=== PATIENT | male | born 1965 | race Caucasian/White ===

== ENCOUNTER 2024-02-26 14:08 | Inpatient (IN) | payer SELFPAY ==
[2024-02-26] MEDS ORDERED: NA CHLORIDE 0.9% 1,000 ML ONE (15:10)
--- NOTE | 2024-02-26 15:26 | RAD REPORT ---
EXAM DESCRIPTION: CT - C Spine Wo Con - 02/26/2024 2:57 pm CLINICAL HISTORY: TRAUMA Fall, trauma, neck injury COMPARISON: <Comparisons> FINDINGS: The cervical vertebral body heights are maintained. Disc thinning with posterior osteophyt e formation C5-6. No evidence of acute cervical spine fracture or subluxation. 3 mm degenerative anterolisthesis is see n C4 on 5 and C6 on 7. Prevertebral soft tissues are normal in thickness. Carotid atherosclerosis bilaterally. IMPRESSION: Negative for acute cervical spine abnormality. Multilevel degenerative change is present. All CT scans are performed using dose optimization technique as appropriate and may include automated exposure control or mA/KV adjustment according to patient size.
[2024-02-26 15:32] LABS: Absolute Lymphocytes (CBC) 0.4 K/uL (0.7-4.9); Absolute Monocytes 0.5 K/uL (0.1-1.3); Absolute Neutrophil 3.5 K/uL (1.8-8.0); Eosinophils % 0.1 % (0-4.4); Hematocrit 44.3 % (39.6-49.0); Hemoglobin 14.7 g/dL (13.6-17.9); Lymphocytes % 8.7 % (15.3-44.8); MCH 31.7 pg (27.0-35.0); MCHC 33.1 g/dL (32.0-36.0); MCV 95.9 fL (80-100); MPV 7.2 fL (7.6-11.3); Monocytes % 11.1 % (3.3-12.3); Neutrophils % 79.1 % (41.7-73.7); Platelets 219 thou/uL (152-406); RBC Red Blood Cell Count 4.63 M/uL (4.33-5.43); Red Cell Distribution Width 12.6 % (12.1-15.2)
[2024-02-26 15:44] LABS: Barbiturates NEGATIVE (NEGATIVE); Benzodiazepines NEGATIVE (NEGATIVE); Cocaine NEGATIVE (NEGATIVE); METHAMPHETAM POSITIVE (NEGATIVE); Methadone NEGATIVE (NEGATIVE); Opiates NEGATIVE (NEGATIVE); Phencyclidine NEGATIVE (NEGATIVE); THC Cannibis NEGATIVE (NEGATIVE)
[2024-02-26 15:49] LABS: Albumin 4.1 g/dL (3.4-5.0); Anion Gap 15.2 mEq/L (5.0-15.0); Bilirubin Direct 0.3 mg/dL (0-0.2); Bilirubin Indirect, Calculated 0.7 mg/dL (0.2-0.8); Globulin 4.1 g/dL (2.3-3.5); Magnesium 2.2 mg/dL (1.6-2.4); Potassium 4.2 mEq/L (3.5-5.1); Protein, Total 8.2 g/dL (6.4-8.2); Troponin High Sensitivity 5.7 pg/mL (<58.9)
--- NOTE | 2024-02-26 16:02 | ER ---
Nurse's Notes [facility] Name: Hao Hardwick Age: 58 yrs Sex: Male : 1965 Arrival Date: 02/26/2024 Time: 14:08 Bed 17 Private MD: Diagnosis: Hyponatremia, syncope, dehydration, alcoholism Presentation: 02/25 14:21 Chief complaint: Patient states: MULTIPLE FALLS WITH WEAKNESS SEEN YESTERDAY BY PCP FOR db SYMPTOMS. CT THIS AM. NOTED BRUISES ALL OVER PATIENT FACE. DRINK ALCOHOL DAILY. LAST DRINK YESTERDAY. Coronavirus screen: Client denies travel out of the [place] in the last 14 days. At this time, the client does not indicate any symptoms associated with coronavirus-19. Ebola Screen: Patient negative for fever greater than or equal to 101.5 degrees Fahrenheit, and additional compatible Ebola Virus Disease symptoms Patient denies exposure to infectious person. Patient denies travel to an Ebola-affected area in the 21 days before illness onset. No symptoms or risks identified at this time. Initial Sepsis Screen: Does the patient meet any 2 criteria? HR > 90 bpm. No. Patient's initial sepsis screen is negative. Does the patient have a suspected source of infection? No. Patient's initial sepsis screen is negative. Risk Assessment: Do you want to hurt yourself or someone else? Patient reports no desire to harm self or others. Onset of symptoms was February 26, 2024. 14:21 Method Of Arrival: Wheelchair db 14:21 Acuity: JORDYN 2 db Triage Assessment: 14:23 General: Appears in no apparent distress. uncomfortable, Behavior is cooperative, db anxious. Pain: Complains of pain in head. Neuro: Level of Consciousness is awake, alert, obeys commands, Oriented to person, place, time, situation, Reports dizziness. Respiratory: Airway is patent Respiratory effort is even, unlabored, Respiratory pattern is regular, symmetrical. Historical: - Allergies: 14:23 No Known Allergies; db - PMHx: 14:23 Hypertensive disorder; db - Immunization history:: Adult Immunizations unknown. - Infectious Disease History:: Denies. - Social history:: Smoking status: Reported history of juuling and/or vaping. Patient uses alcohol, on a daily basis. Screenin:50 [facility] ED Fall Risk Assessment (Adult) History of falling in the last 3 months, nj1 including since admission Yes- fall prone (multiple falls) (3 pts) Confusion or Disorientation No (0 pts) Intoxicated or Sedated No (0 pts) Impaired Gait No (0 pts) Mobility Assist Device Used No (0 pt) Altered Elimination No (0 pt) Score/Fall Risk Level 3 or more points = High Risk Oriented to surroundings, Maintained a safe environment, Educated pt \T\ family on fall prevention, incl call for assistance when getting out of bed, Provided non-skid footwear, Hourly rounding (assess needs \T\ fall precautionary measures) done, Remained w/in arm's length of patient and in sight while toileting, Offered frequent toileting (1:1 observation), Remained with patient while ambulating, Utilized family, sitter, or virtual automatic spinning lathe operator as indicated. Abuse screen: Denies threats or abuse. Denies injuries from another. Nutritional screening: No deficits noted. Tuberculosis screening: No symptoms or risk factors identified. Assessment: 15:49 General: Appears in no apparent distress. comfortable, Behavior is calm, cooperative, nj1 appropriate for age. Pain: Denies pain. Neuro: Level of Consciousness is awake, alert, obeys commands, Oriented to person, place, time, situation, Moves all extremities. Speech is normal, Facial symmetry appears normal. Cardiovascular: Patient's skin is warm and dry. Rhythm is sinus tachycardia. Respiratory: Airway is patent Respiratory effort is even, unlabored. Derm: Bruising that is dark purple, on face, right knee and left knee. 16:49 Reassessment: Patient appears in no apparent distress at this time. Patient and/or nj1 family updated on plan of care and expected duration. Pain level reassessed. Patient is alert, oriented x 3, equal unlabored respirations, skin warm/dry/pink. 17:52 Reassessment: Patient appears in no apparent distress at this time. Patient and/or nj1 family updated on plan of care and expected duration. Pain level reassessed. Patient is alert, oriented x 3, equal unlabored respirations, skin warm/dry/pink. 18:01 Reassessment: Unsuccessful attempt to call report at this time. Nurse unavailable, will nj1 call back for report. 18:15 Reassessment: REPORT TO NEIL BEE FOR ICU. bp Vital Signs: 14:21 BP 152 / 93; Pulse 117; Resp 18; Temp 98.3; Pulse Ox 100% ; Weight 88 kg; Height 5 ft. db 10 in. ; 15:51 BP 166 / 93; Pulse 123; Resp 15; Pulse Ox 99% ; nj1 16:49 BP 149 / 90; Pulse 119; Resp 13; Pulse Ox 99% ; nj1 17:50 BP 144 / 84; Pulse 120; Resp 18; Temp 97.7(TE); Pulse Ox 98% on R/A; nj1 18:06 BP 144 / 84; Pulse 128; Resp 18; Pulse Ox 100% on R/A; ld1 14:21 Body Mass Index 27.84 (88.00 kg, 177.8 cm) db ED Course: 14:15 Patient arrived in ED. im 14:18 Aime Carlton MD is Attending Physician. sp3 14:23 Triage completed. db 14:24 Arm band placed on. db 14:59 C Spine Wo Con In Process Unspecified. EDMS 15:10 Inserted saline lock: 20 gauge in right forearm, using aseptic technique. Blood lg3 collected. 15:10 UDS Sent. lg3 15:10 ETOH Level Sent. lg3 15:11 Basic Metabolic Panel Sent. lg3 15:11 CBC with Diff Sent. lg3 15:11 LFT's Sent. lg3 15:11 Magnesium Sent. lg3 15:11 NT PRO-BNP Sent. lg3 15:11 PT-INR Sent. lg3 15:11 Troponin HS Sent. lg3 15:34 XRAY Chest (1 view) In Process Unspecified. EDMS 15:36 Rosalva March, RN is Primary Nurse. nj1 15:50 Patient has correct armband on for positive identification. Bed in low position. Call nj1 light in reach. Adult w/ patient. Provided Education on: call light, fall precautions. Client placed on continuous cardiac and pulse oximetry monitoring. NIBP monitoring applied. site monitor on. 16:01 Comfort Bradshaw MD is Hospitalizing Provider. sp3 16:48 Knee Left 2 View XRAY In Process Unspecified. EDMS 16:49 Knee Right 2 View XRAY In Process Unspecified. EDMS 18:15 Liver Only In Process Unspecified. EDMS 18:16 No provider procedures requiring assistance completed. Patient admitted, IV remains in bp place. Administered Medications: 15:13 Drug: NS 0.9% IV 1000 ml IV at 1 bolus Per protocol; 1000 mL bolus Route: IV; Rate: 1 lg3 bolus; Site: right forearm; 18:16 Follow up: IV Status: Completed infusion; IV Intake: 1000ml bp 16:39 Drug: Ativan IVP 1 mg IVP once Route: IVP; Site: right antecubital; nj1 17:50 Follow up: Response: No adverse reaction nj1 Medication: 18:21 VIS not applicable for this client. nj1 Intake: 18:16 IV: 1000ml; Total: 1000ml. bp Output: 16:30 Urine: 1000ml (Voided); Total: 1000ml. nj1 Outcome: 16:01 Decision to Hospitalize by Provider. sp3 18:16 Admitted to ICU accompanied by nurse, via stretcher, room 3, with chart, Report called bp to NEIL RN 18:16 Condition: stable 18:16 Instructed on the need for admit, 18:21 Patient left the ED. nj1 Signatures: Dispatcher [employer] EDMS Sherman Luna RN RN Raven George RN RN lg3 Linette Pina, RN RN ld1 Aime Carlton MD MD sp3 Mary Curry RN RN db Rosalva March RN RN nj1 Aidee Qureshi Corrections: (The following items were deleted from the chart) 14:24 14:20 Chief complaint: db db 14:24 14:21 Chief complaint: Patient states: MULTIPLE FALLS WITH WEAKNESSSEEN YESTERDAY BY db PCP FOR SYMPTOMS. CT THIS AM db 17:59 17:50 BP 144 / 84; Pulse 120bpm; Resp 18bpm; Pulse Ox 98% RA; nj1 nj1
--- NOTE | 2024-02-26 16:02 | EDPHYS ---
Physician Documentation [facility] Name: Hao Hardwick Age: 58 yrs Sex: Male : 1965 Arrival Date: 02/26/2024 Time: 14:08 Bed 17 Private MD: ED Physician Aime Carlton HPI: 02/25 15:50 This 58 yrs old Male presents to ER via Wheelchair with complaints of Decreased sp3 Appetite, Syncope, Vomiting. 15:50 58-year-old male with a history of hypertension, alcoholism who now presents to the ED sp3 with multiple falls over the last 3 to 4 days. Patient sent by PCP for multiple contusions, head injuries, knee injuries and bouts of syncope causing these injuries. Patient also complains of vomiting. Denies any chest pain, shortness of breath, fever, cough, bleeding, or any other signs or symptoms on ROS at this time. His last drink was yesterday he does not feel like he is withdrawing. He denies any illicit drug use.. Historical: - Allergies: 14:23 No Known Allergies; db - PMHx: 14:23 Hypertensive disorder; db - Immunization history:: Adult Immunizations unknown. - Infectious Disease History:: Denies. - Social history:: Smoking status: Reported history of juuling and/or vaping. Patient uses alcohol, on a daily basis. ROS: 15:53 Eyes: Negative for injury, pain, redness, and discharge, Neck: Negative for injury, sp3 pain, and swelling, Respiratory: Negative for shortness of breath, cough, wheezing, and pleuritic chest pain, Skin: Negative for injury, rash, and discoloration, Allergy/Immunology: Negative for hives, rash, and allergies, Endocrine: Negative for neck swelling, polydipsia, polyuria, polyphagia, and marked weight changes, 15:53 All other systems are negative, Exam: 15:53 Constitutional: This is a well developed, well nourished patient who is awake, alert, sp3 and in no acute distress. Eyes: Pupils equal round and reactive to light, extra-ocular motions intact. Lids and lashes normal. Conjunctiva and sclera are non-icteric and not injected. Cornea within normal limits. Periorbital areas with no swelling, redness, or edema. ENT: Nares patent. No nasal discharge, no septal abnormalities noted. External auditory canals are clear. Oropharynx with no redness, swelling, or masses, exudates, or evidence of obstruction, uvula midline. Mucous membranes moist. Neck: Trachea midline, no thyromegaly or masses palpated, and no cervical lymphadenopathy. Supple, full range of motion without nuchal rigidity, or vertebral point tenderness. No Meningismus. Chest/axilla: Normal chest wall appearance and motion. Nontender with no deformity. No lesions are appreciated. Respiratory: Lungs have equal breath sounds bilaterally, clear to auscultation and percussion. No rales, rhonchi or wheezes noted. No increased work of breathing, no retractions or nasal flaring. Abdomen/GI: Soft, non-tender, with normal bowel sounds. No distension or tympany. No guarding or rebound. No evidence of tenderness throughout. Skin: Warm, dry with normal turgor. Normal color with no rashes, no lesions, and no evidence of cellulitis. MS/ Extremity: Pulses equal, no cyanosis. Neurovascular intact. Full, normal range of motion. Neuro: Awake and alert, GCS 15, oriented to person, place, time, and situation. Cranial nerves II-XII grossly intact. Motor strength 5/5 in all extremities. Sensory grossly intact. Cerebellar exam normal. Normal gait. Psych: Awake, alert, with orientation to person, place and time. Behavior, mood, and affect are within normal limits. 15:53 Head/face: Patient with multiple facial contusions and knee contusions.. 15:53 Cardiovascular: Patient tachycardic., 15:53 Neuro: Patient globally slow however no focal deficits on neurological examination. Gait not assessed., 16:33 ECG was reviewed by the Attending Physician. EKG demonstrates sinus tachycardia at 116 sp3 bpm with normal intervals, normal QRS, normal axis, nonspecific diffuse ST's ST changes without evidence of acute ischemia. Vital Signs: 14:21 BP 152 / 93; Pulse 117; Resp 18; Temp 98.3; Pulse Ox 100% ; Weight 88 kg; Height 5 ft. db 10 in. ; 15:51 BP 166 / 93; Pulse 123; Resp 15; Pulse Ox 99% ; nj1 16:49 BP 149 / 90; Pulse 119; Resp 13; Pulse Ox 99% ; nj1 17:50 BP 144 / 84; Pulse 120; Resp 18; Temp 97.7(TE); Pulse Ox 98% on R/A; nj1 18:06 BP 144 / 84; Pulse 128; Resp 18; Pulse Ox 100% on R/A; ld1 14:21 Body Mass Index 27.84 (88.00 kg, 177.8 cm) db MDM: 14:37 Patient medically screened. sp3 15:54 Data reviewed: vital signs, nurses notes, lab test result(s), EKG, radiologic studies. sp3 ED course: PCP ordered outpatient CT head this morning. I added CT scan of the C-spine. X-rays of the knees are pending. Laboratory values demonstrate hyponatremia at 126 likely prerenal in nature given heart rate of 123. Patient does not have any withdrawal symptoms. Initially 1 bolus normal saline was ordered and further saline will be infused slowly. Patient will be admitted and remainder outstanding lab work followed up. Urine drug screen positive for methamphetamine.. 02/25 14:38 Order name: Basic Metabolic Panel; Complete Time: 15:52 sp3 02/25 14:38 Order name: CBC with Diff; Complete Time: 15:48 3 02/25 14:38 Order name: LFT's; Complete Time: 15:52 3 02/25 14:38 Order name: Magnesium; Complete Time: 15:52 3 02/25 14:38 Order name: NT PRO-BNP; Complete Time: 15:52 sp3 02/25 14:38 Order name: PT-INR; Complete Time: 16:29 3 02/25 14:38 Order name: Troponin HS; Complete Time: 15:52 sp3 02/25 14:38 Order name: ETOH Level; Complete Time: 15:52 3 02/25 14:38 Order name: UDS; Complete Time: 15:48 sp3 02/25 16:35 Order name: CBC with Automated Diff EDMS 02/25 16:36 Order name: Comprehensive Metabolic Panel EDMS 02/25 16:36 Order name: Magnesium EDMS 02/25 16:40 Order name: Basic Metabolic Panel EDMS 02/25 16:40 Order name: Basic Metabolic Panel EDMS 02/25 16:40 Order name: Basic Metabolic Panel EDMS 02/25 16:40 Order name: Basic Metabolic Panel EDMS 02/25 16:40 Order name: Basic Metabolic Panel EDMS 02/25 16:41 Order name: Acute Hepatitis Panel [facility] 02/25 16:41 Order name: Acute Hepatitis Panel [facility] 02/25 14:38 Order name: XRAY Chest (1 view); Complete Time: 16:29 3 02/25 14:56 Order name: C Spine Wo Con; Complete Time: 15:48 [facility] 02/25 15:48 Order name: Knee Left 2 View XRAY 3 02/25 15:48 Order name: Knee Right 2 View XRAY 3 02/25 16:41 Order name: Liver Only [facility] 02/25 16:35 Order name: Physical Therapy Consult [facility] 02/25 14:38 Order name: Cardiac monitoring; Complete Time: 15:42 3 02/25 14:38 Order name: EKG - Nurse/Tech; Complete Time: 15:10 3 02/25 14:38 Order name: IV Saline Lock; Complete Time: 15:10 3 02/25 14:38 Order name: Labs collected and sent; Complete Time: 15:10 3 02/25 14:38 Order name: O2 Per Protocol; Complete Time: 15:10 3 02/25 14:38 Order name: O2 Sat Monitoring; Complete Time: 15:10 3 02/25 15:32 Order name: Labs - recollect needed: blue; Complete Time: 16:02 bc6 Administered Medications: 15:13 Drug: NS 0.9% IV 1000 ml IV at 1 bolus Per protocol; 1000 mL bolus Route: IV; Rate: 1 lg3 bolus; Site: right forearm; 18:16 Follow up: IV Status: Completed infusion; IV Intake: 1000ml bp 16:39 Drug: Ativan IVP 1 mg IVP once Route: IVP; Site: right antecubital; nj1 17:50 Follow up: Response: No adverse reaction nj1 Disposition Summary: 02/26/24 16:01 Hospitalization Ordered Notes: Hospitalization Status: Inpatient Admission sp3 Provider: Comfort Bradshaw sp3 Condition: Stable sp3 Problem: an acute exacerbation sp3 Symptoms: have worsened sp3 Bed/Room Type: Standard sp3 Location: Intensive Care Unit(02/26/24 17:55) bc6 Room Assignment: 3-(02/26/24 17:55) bc6 Diagnosis - Hyponatremia, syncope, dehydration, alcoholism sp3 Forms: - Medication Reconciliation Form sp3 - SBAR form sp3 - Leadership Thank You Letter sp3 Signatures: Dispatcher [employer] EDMS Raven Reaves RN RN lg3 Aime Carlton MD MD sp3 Mary Curry, RN RN Darleen Walters bc6 Rosalva March RN RN nj1 Sherman Luna RN bp Corrections: (The following items were deleted from the chart) 14:38 14:38 Head C Spine MPR Wo Con+CT.RAD.BRZ ordered. EDMO EDMS 17:55 16:01 Telemetry/MedSurg (Inpatient) sp3 6 17:55 16:01 3 6
--- NOTE | 2024-02-26 16:12 | RAD REPORT ---
EXAM DESCRIPTION: RAD - Chest Single View - 02/26/2024 3:33 pm CLINICAL HISTORY: TRAUMA Chest pain. COMPARISON: <Comparisons> FINDINGS: Portable technique limits examination quality. The lungs are emphysematous but grossly clear. The heart is normal in size. No displaced fractures. IMPRESSION: No acute intrathoracic process suspected.
[2024-02-26 16:29] LABS: PT Prothrombin Time 11.3 SECONDS (9.5-12.5); Protime INR 1.03
[2024-02-26] MEDS ORDERED: ACETAMINOPHEN 500 MG TAB PO PRN (16:32)
[2024-02-26] MEDS ORDERED: ONDANSETRON 4 MG/2 ML VIAL IV PRN (16:32)
[2024-02-26] MEDS ORDERED: FLUMAZENIL 0.1 MG/ML (5 mL VIAL) IV PRN (16:34)
[2024-02-26] MEDS ORDERED: LORazepam 2 MG/ML VIAL ONE (16:35)
[2024-02-26] MEDS ORDERED: LORazepam 2 MG/ML VIAL IV PRN ×2 (16:35→16:36)
--- NOTE | 2024-02-26 16:42 | P.HP ---
Certification for Inpatient Patient admitted to: Inpatient With expected LOS: <2 Midnights Practitioner: I am a practitioner with admitting privileges, knowledge of patient current condition, hospital course, and medical plan of care. Services: Services provided to patient in accordance with Admission requirements found in Title 42 Section 412.3 of the Code of Federal Regulations Patient History Date of Service: 02/26/24 Reason for admission: Hyponatremia, ETOH History of Present Illness: 58 yrs old Male past medical history hypertension, alcohol abuse presents to the emergency room for falls, unsteady gait, nausea, vomiting for the last 3-4 days. He was sent by PCP for Patient sent by PCP for evaluation for multiple contusions, head injuries, knee injuries and bouts of syncope. He denies history of cirrhosis, rectal bleeding, vomiting blood. He reports last alcohol use was last night. He reports dehydration, nausea vomiting. Poor p.o. intake.ER evaluation, BP 152 / 93; Pulse 117; Resp 18; Temp 98.3; Pulse Ox 100% ; Weight 88 kg; Height 5 ft 10 in. Plan to admit to ICU for - Hyponatremia, syncope, dehydration, alcoholism, nephrology to consult Allergies No Known Drug Allergies Allergy (Unverified 03/23/15 01:08) Unknown Home medications list reviewed: Yes - Past Medical/Surgical History Has patient received pneumonia vaccine in the past: No Diabetic: No -: HTN -: ETOH use -: Vape -: vertigo -: insomnia -: ulnar nerve release - Social History Smoking Status: Current some day smoker Alcohol use: Yes Caffeine use: Yes Place of Residence: Home Review of Systems PER HPI Physical Examination - Physical Exam General: Alert, Oriented x3 (Tremors,), Other HEENT: Atraumatic, Other (brusing, abraison on chin) Neck: 2+ carotid pulse no bruit, JVD not distended Respiratory: Clear to auscultation bilaterally, Normal air movement Cardiovascular: Normal pulses, Other Capillary refill: <2 Seconds Gastrointestinal: Normal bowel sounds, Soft and benign Musculoskeletal: No clubbing, No swelling (Bruising on the chin tachycardic heart rate 120), Other (Bilateral knees bruising, abrasions) Integumentary: Other (knee abrasions, bruising) Neurological: Normal speech, Abnormal gait, Abnormal strength - Studies Laboratory Data (last 24 hrs) 0502/26/24 02/26/24 16:00 15:07 15:07 WBC 4.50 Hgb 14.7 Hct 44.3 Plt Count 219 PT 11.3 INR 1.03 Sodium 126 L Potassium 4.2 BUN 10 Creatinine 0.85 Glucose 127 H Magnesium 2.2 Total Bilirubin 1.0 AST 109 H ALT 119 H Alkaline Phosphatase 65 Assessment and Plan - Plan Assessment plan Alcohol use Tremors Hyponatremia Admit to ICU, Presidex gtt Q4H BMP, Neph consult for hyponatremia Librium, MVI Transaminitis Hep panel, Liver US Educate ETOH Cessation syncope, like secondary Hyponatremia Falls. PT Eval, for DME needs HTN resume appop home meds Full code DVT SCD Diet Cardiac Dispostion, pending hospital course Discharge Plan: Home - Advance Directives Does patient have a Living Will: No Does patient have a Durable POA for Healthcare: No - Code Status/Comfort Care Code Status Assessed: Yes Code Status: Full Code Critical Care: Yes Time Spent Managing Pts Care (In Minutes): 65
--- NOTE | 2024-02-26 16:53 | RAD REPORT ---
EXAM DESCRIPTION: RAD - Knee Left 2 View - 02/26/2024 4:46 pm CLINICAL HISTORY: trauma COMPARISON: <Comparisons> FINDINGS: No fracture, dislocation or joint effusion.
--- NOTE | 2024-02-26 16:55 | RAD REPORT ---
EXAM DESCRIPTION: RAD - Knee Right 2 View - 02/26/2024 4:46 pm CLINICAL HISTORY: trauma COMPARISON: <Comparisons> FINDINGS: No fracture, dislocation or joint effusion. Spurs noted at the patellar tendon insertion.
[2024-02-26] MEDS ORDERED: DEXMEDETOMIDINE HCL 200 MCG in NA CHLORIDE 0.9% 98 ML IV SCH (18:12)
--- NOTE | 2024-02-26 18:19 | RAD REPORT ---
EXAM DESCRIPTION: US - Liver Only - 02/26/2024 6:13 pm CLINICAL HISTORY: ELEV LIVER ENZYMES COMPARISON: No comparisons FINDINGS: The liver demonstrates diffuse fatty infiltration.No focal liver lesion or intrahepatic bi liary dilatation.No evidence of portal vein thrombosis. The spleen is normal in size. IMPRESSION: Fatty liver.
[2024-02-26] MEDS: chlordiazePOXIDE HCl 25 MG CAP PO SCH (18:41)
[2024-02-26] MEDS: NA CHLORIDE 0.9% 1,000 ML IV SCH (18:41)
[2024-02-26] MEDS: DEXMEDETOMIDINE HCL 200 MCG in NA CHLORIDE 0.9% 98 ML IV SCH (20:09)
[2024-02-26 20:13] VITALS: BMI 27.6
[2024-02-26 20:57] LABS: Anion Gap 9.9 mEq/L (5.0-15.0); Potassium 3.9 mEq/L (3.5-5.1)
[2024-02-26] MEDS: POTASSIUM CL SA 10 MEQ TAB PO ONE (21:45)
[2024-02-27] MEDS: MAGNES/ALUMIN/SIMET 30ML UCUP PO PRN (00:15)
[2024-02-27 01:00] LABS: Anion Gap 9.7 mEq/L (5.0-15.0); Potassium 3.7 mEq/L (3.5-5.1)
[2024-02-27 04:42] LABS: Absolute Eosinophils 0.1 K/uL (0-0.5); Absolute Lymphocytes (CBC) 0.5 K/uL (0.7-4.9); Absolute Monocytes 0.4 K/uL (0.1-1.3); Absolute Neutrophil 1.8 K/uL (1.8-8.0); Basophils % 1.1 % (0-1.3); Eosinophils % 2.6 % (0-4.4); Hematocrit 34.7 % (39.6-49.0); MCH 33.1 pg (27.0-35.0); MCHC 34.6 g/dL (32.0-36.0); MCV 95.6 fL (80-100); Monocytes % 13.7 % (3.3-12.3); Neutrophils % 64.6 % (41.7-73.7); Nucleated Red Blood Cells % 0.1 % (0-0); Platelets 184 thou/uL (152-406); RBC Red Blood Cell Count 3.63 M/uL (4.33-5.43); Red Cell Distribution Width 12.5 % (12.1-15.2)
[2024-02-27 04:59] LABS: Anion Gap 9.9 mEq/L (5.0-15.0); Bilirubin Total 0.9 mg/dL (0.2-1.0); Globulin 3.1 g/dL (2.3-3.5); Magnesium 2.5 mg/dL (1.6-2.4); Potassium 3.9 mEq/L (3.5-5.1); Protein, Total 6.1 g/dL (6.4-8.2)
[2024-02-27 05:51] LABS: HBsAG Nonreactive Report Report; Hepatitis B Core IgM Nonreactive (Nonreactive); Hepatitis B surface AG Interp. Nonreactive (Nonreactive); Hepatitis C Virus Ab Nonreactive (Nonreactive)
[2024-02-27] MEDS: POTASSIUM CL SA 10 MEQ TAB PO ONE (05:55)
[2024-02-27 05:56] LABS: Phosphorus 3.8 mg/dL (2.5-4.9)
[2024-02-27] MEDS: THIAMINE HCL 100 MG TABLET PO SCH (07:33)
[2024-02-27] MEDS: DEXMEDETOMIDINE HCL 1,000 MCG in NA CHLORIDE 0.9% 490 ML IV SCH (07:33)
[2024-02-27] MEDS: FOLIC ACID 1 MG TABLET PO SCH (07:33)
[2024-02-27] MEDS: MULTIVITAMIN TAB PO SCH (07:34)
--- NOTE | 2024-02-27 11:38 | P.CNS ---
Date of Consult: 02/27/24 Reason for Consult: Hyponatremia, labile pressures Chief Complaint: Hyponatremia, ETOH History of Present Illness: Pt is a 58 yrs old Male witha past medical history of hypertension on CCB, alcohol abuse without reports of any recent withdrawal or DT episode who presented yesterday to the emergency room for falls, unsteady gait, nausea, vomiting for the last 3-4 days. He was sent by PCP for Patient sent by PCP for evaluation for multiple contusions, head injury, and bouts of (pre)syncope. He had a positive Etoh level on admission. He was found to be hyponatremic on admission, he denies knowledge of low Na level in the past. Allergies No Known Allergies Allergy (Verified 02/26/24 23:40) Home Medications: Amlodipine Besylate 10 mg PO DAILY 02/26/24 Dextroamphetamine/Amphetamine [Adderall 10 mg Tablet] 1 tab PO TID 02/26/24 Eszopiclone [Lunesta] 3 mg PO BEDTIME 02/26/24 Lamotrigine [Lamotrigine ER] 150 mg PO BID 02/26/24 Lurasidone HCl [Latuda] 60 mg PO BEDTIME 02/26/24 Meclizine HCl [Antivert] 25 mg PO Q8H 02/26/24 - Past Medical/Surgical History Diabetic: No -: HTN -: ETOH use -: Vape -: vertigo -: insomnia -: bipolar depression -: ulnar nerve release -: rotator cuff - Family History Father Medical History: Heart disease Mother Medical History: Hypertension, Lung disease Brother Medical History: Heart disease Sister Medical History: Hypertension - Social History Alcohol use: Yes CD- Drugs: No Caffeine use: No Place of Residence: Home Review of Systems As per HPI Physical Examination Temp Pulse Resp BP Pulse Ox 97.2 F 75 11 L 121/75 99 02/27/24 07:00 02/27/24 11:00 02/27/24 11:00 02/27/24 11:00 02/27/24 11:00 General: In no apparent distress HEENT: Other (Bruising over left forehead) Neck: Supple Respiratory: Clear to auscultation bilaterally, Normal air movement Cardiovascular: No edema, Regular rate/rhythm Gastrointestinal: Soft and benign, Non-distended Musculoskeletal: No swelling, No contractures Integumentary: No rashes Neurological: Normal speech, Normal tone, Normal affect Laboratory Data (last 24 hrs) 02/26/24 02/26/24 02/26/24 16:00 15:07 15:07 WBC 4.50 Hgb 14.7 Hct 44.3 Plt Count 219 PT 11.3 INR 1.03 Sodium 126 L Potassium 4.2 BUN 10 Creatinine 0.85 Glucose 127 H Magnesium 2.2 Total Bilirubin 1.0 AST 109 H ALT 119 H Alkaline Phosphatase 65 Conclusions/Impression: A/P) 1. Acute or sub-acute hypotonic hyponatremia (presumed) which is likely multifactorial with hypovolemic component in addition to possible element of beer potomania +/- effects of other agents/meds listed including anti- psychotics. 2. Na level rising and correcting acceptably but to prevent further rapid rise, will d/c isotonic IVF and switch to hypotonic 1/2 NS with added KCL 3. Will check urine studies 4. Renal function tests within normal limits 5. Labile pressures, elevated initially but lower since. Given repeated falls, pre-syncope, other. Cont to trend BP range off meds, check orthostatic vitals later when cleared to work with PT. Review meds and limit use of MATHEMATICAL ENGINEERING TECHNICIAN depressants, other
[2024-02-27] MEDS: NACHLORIDE 0.45% 1,000 ML with POTASSIUM CL 20 MEQ IV SCH (12:13)
[2024-02-27] MEDS: chlordiazePOXIDE HCl 5 MG CAP PO SCH (12:13)
--- NOTE | 2024-02-27 16:51 | EKG ---
Test Date: 2024-02-26 Test Time: 15:16:54 Char Puller: BP MEASUREMENT RESULTS: Intervals: Rate: 116 TN: 180 QRSD: 88 QT: 324 QTc: 450 [place]: P: 67 TN: 180 QRS: 37 T: 24 INTERPRETIVE STATEMENTS: Sinus tachycardia Otherwise normal ECG No previous ECG available for comparison Electronically Signed On 02-27-24 16:48:30 CDT by Herve Lees
[2024-02-27 18:43] LABS: Anion Gap 8.3 mEq/L (5.0-15.0); Potassium 4.3 mEq/L (3.5-5.1)
[2024-02-27 20:58] VITALS: O2SAT 99
[2024-02-27] MEDS: LAMOTRIGINE 100 MG PO SCH (21:00)
[2024-02-27] MEDS: MECLIZINE HCL 12.5 MG TAB PO SCH (21:00)
[2024-02-27] MEDS: HOME MED 1 EA UNK (Lurasidone Hcl [Latuda] 60 MG Tablet) PO SCH (21:00)
[2024-02-27] MEDS: HOME MED 1 EA UNK (Eszopiclone [Lunesta] 3 MG Tablet) PO SCH (21:00)
[2024-02-27] MEDS: AMLODIPINE 10 MG TAB PO SCH (21:15)
[2024-02-28 04:46] LABS: Absolute Eosinophils 0.2 K/uL (0-0.5); Absolute Lymphocytes (CBC) 0.6 K/uL (0.7-4.9); Absolute Monocytes 0.3 K/uL (0.1-1.3); Absolute Neutrophil 1.9 K/uL (1.8-8.0); Basophils % 1.2 % (0-1.3); Eosinophils % 5.4 % (0-4.4); Hematocrit 36.4 % (39.6-49.0); Hemoglobin 12.5 g/dL (13.6-17.9); Lymphocytes % 20.7 % (15.3-44.8); MCH 32.8 pg (27.0-35.0); MCHC 34.4 g/dL (32.0-36.0); MCV 95.5 fL (80-100); MPV 7.2 fL (7.6-11.3); Neutrophils % 61.7 % (41.7-73.7); Platelets 167 thou/uL (152-406); RBC Red Blood Cell Count 3.81 M/uL (4.33-5.43); Red Cell Distribution Width 12.5 % (12.1-15.2)
[2024-02-28 04:59] LABS: Anion Gap 8.3 mEq/L (5.0-15.0); Magnesium 2.3 mg/dL (1.6-2.4); Phosphorus 3.9 mg/dL (2.5-4.9); Potassium 4.3 mEq/L (3.5-5.1)
[2024-02-28 08:14] VITALS: TEMP 97.3
[2024-02-28] MEDS: MECLIZINE HCL 12.5 MG TAB PO SCH (08:24)
[2024-02-28] MEDS: FOLIC ACID 1 MG TABLET PO SCH (08:25)
[2024-02-28] MEDS: MULTIVITAMIN TAB PO SCH (08:25)
[2024-02-28] MEDS: THIAMINE HCL 100 MG TABLET PO SCH (08:25)
[2024-02-28] MEDS ORDERED: FOLIC ACID IV SCH (09:00)
[2024-02-28] MEDS ORDERED: MULTIVITAMINS IV SCH (09:00)
[2024-02-28] MEDS ORDERED: THIAMINE HCL IV SCH (09:00)
[2024-02-28] MEDS ORDERED: D5W IV SCH (09:00)
[2024-02-28 10:45] VITALS: BP 112/77
== END 2024-02-28 11:05 | disposition home or self-care (01) | DRG 641 ==
LOC: ER 14:08 → 3RD-ICU 16:29
PROVIDERS: ADMIT Hospitalist; ATTEND Hospitalist
DX: E87.1 Hypo-osmolality and hyponatremia (principal); I10 Essential (primary) hypertension; E86.0 Dehydration; E86.1 Hypovolemia; F10.20 Alcohol dependence, uncomplicated; F17.200 Nicotine dependence, unspecified, uncomplicated; R29.6 Repeated falls; R25.1 Tremor, unspecified; Z91.81 History of falling; R74.01 Elevation of levels of liver transaminase levels; Z79.899 Other long term (current) drug therapy; Y90.0 Blood alcohol level of less than 20 mg/100 ml
CPT/HCPCS: 36415; 71045; 72125; 76705; 80048; 80053; 80074; 80076; 80307; 82077; 82570; 83735; 83880; 83935; 84100; 84300; 84484; 85025; 85610; 93005; 96361; 96374; 97116; 97161; 99285; J3411; J3480; J7030; J7040; J8597